=== PATIENT | male | born 1950 | race Caucasian/White ===

== ENCOUNTER 2017-10-09 09:46 | Emergency (ER) | payer OTHER ==
[~2017-10-09] VITALS: Ht 193 cm; Wt 132.0 kg
[2017-10-09 10:43] LABS: HEMATOCRIT 46.9 % (38.0-50.0); MCH 29.7 PG (29.0-34.0); MCHC 33.7 G/DL (30.0-36.0); MCV 88.2 FL (86-99); MEAN PLAT.VOLUME 9.7 uM^3 (9.0-12.4); PLATELET COUNT 349 K/uL (156-360); RBC DIS.WIDTH-SD 38.7 % (39-53); RED BLOOD COUNT 5.32 M/uL (4.00-5.50); WHITE BLOOD COUNT 11.3 K/uL (4.1-10.2)
[2017-10-09 10:52] LABS: CHLORIDE 103 mEq/L (99-109); POTASSIUM 4.1 mEq/L (3.7-5.4); SODIUM 136 mEq/L (136-147)
[2017-10-09 10:54] LABS: GLUCOSE 203 mg/dL (70-99)
[2017-10-09 10:56] LABS: ANION GAP 9 MEQ/L (2-14)
[2017-10-09 10:58] LABS: GFR ESTIMATE (CALCULATED) > 59 mL/min/
[2017-10-09 10:59] LABS: UREA NITROGEN (BUN) 14 mg/dL (9-23)
[2017-10-09 11:05] LABS: TROP-I INTERPRETATION NEGATIVE; TROPONIN-I < 0.01 ng/mL (0.0-0.30)
[2017-10-09] MEDS ORDERED: ALLOPURINOL100 MG PO (11:13)
[2017-10-09] MEDS ORDERED: COLCHICINE0.6 M1 PO (12:04)
[2017-10-09] MEDS ORDERED: INDOCIN50 MG PO (12:04)
[2017-10-09 12:22] VITALS: BP 151/86
== END 2017-10-09 12:23 | disposition home or self-care (01) ==
LOC: EME 09:46
DX: M10.9 Gout, unspecified (principal); R73.9 Hyperglycemia, unspecified; M79.89 Other specified soft tissue disorders; R07.9 Chest pain, unspecified; M79.671 Pain in right foot; M54.2 Cervicalgia; Z87.891 Personal history of nicotine dependence; Z88.0 Allergy status to penicillin
CPT/HCPCS: 71020; 80048; 84484; 85027; 93005; 99281; 99284